=== PATIENT | male | born 1985 | race Caucasian/White ===

== ENCOUNTER 2019-09-21 14:47 | Emergency (ER) | payer SELFPAY ==
[~2019-09-21] VITALS: Ht 182.9 cm; Wt 100.0 kg
[2019-09-21 15:07] VITALS: BP 130/80
[2019-09-21] MEDS ORDERED: bacitracin 15gm ointment TP ONE (16:05)
== END 2019-09-21 16:11 | disposition home or self-care (01) ==
LOC: ER 14:49
DX: S81.012A Laceration without foreign body, left knee, initial encounter (principal); S50.312A Abrasion of left elbow, initial encounter; V29.9XXA Motorcycle rider (driver) (passenger) injured in unspecified traffic accident, initial encounter; Y93.89 Activity, other specified; Y92.488 Other paved roadways as the place of occurrence of the external cause; Y99.8 Other external cause status
CPT/HCPCS: 73564; 73590; 99284

== ENCOUNTER 2020-02-11 12:40 | Emergency (ER) | payer MEDICAID ==
[~2020-02-11] VITALS: Ht 177.8 cm; Wt 100.0 kg
[2020-02-11 13:03] VITALS: BP 134/88
[2020-02-11] MEDS ORDERED: predniSONE 20 mg tablet PO ONE (13:40)
[2020-02-11] MEDS ORDERED: PRED10TA PO (13:49)
--- NOTE | 2020-02-11 13:55 | NUR ---
Patient seen and assessed by provider.
== END 2020-02-11 14:02 | disposition home or self-care (01) ==
LOC: ER 12:41
DX: L23.7 Allergic contact dermatitis due to plants, except food (principal); R06.02 Shortness of breath; Z79.899 Other long term (current) drug therapy
CPT/HCPCS: 99283; J7512